=== PATIENT | female | born 1950 ===

== ENCOUNTER 2017-10-23 07:56 | Outpatient (CLI) | payer MEDICARE, BC | END 2017-10-23 07:57 | disposition home or self-care (01) | LOC: BICMAMMO 07:56 | PROVIDERS: ATTEND Family Medicine | DX: Z12.31 Encounter for screening mammogram for malignant neoplasm of breast (principal); R09.89 Other specified symptoms and signs involving the circulatory and respiratory systems | CPT/HCPCS: 77063; 93880; G0202; 77067 ==